=== PATIENT | male | born 1960 | race Caucasian/White ===

== ENCOUNTER 2024-02-24 15:22 | Emergency (ER) | payer OTHER ==
[2024-02-24] MEDS ORDERED: Doxycycline 100 MG CAP ONE (16:22)
== END 2024-02-24 16:30 | disposition home or self-care (01) ==
LOC: BURERS 15:22
DX: S61.452A Open bite of left hand, initial encounter (principal); W54.0XXA Bitten by dog, initial encounter
CPT/HCPCS: 99283